=== PATIENT | female | born 1945 | race Hispanic/Latino ===

== ENCOUNTER 2023-09-30 23:23 | Emergency (ER) | payer OTHER ==
[~2023-09-30] VITALS: Ht 162.6 cm; Wt 72.6 kg
[2023-10-01 00:12] LABS: APPEARANCE,URINE CLEAR (CLEAR); BILIRUBIN,URINE NEGATIVE (NEGATIVE); COLOR,URINE LIGHT-YELLOW (YELLOW); GLUCOSE, URINE (UA) NEGATIVE (NEGATIVE); KETONES,URINE NEGATIVE (NEGATIVE); LEUKOCYTE ESTERASE ,URINE 250 Leu/uL (NEGATIVE); NITRATE,URINE 2+ (NEGATIVE); OCCULT BLOOD,URINE NEGATIVE (NEGATIVE); PH,URINE 5.5 (5.0-8.0); PROTEIN,URINE 20 mg/dL (NEGATIVE); UROBILINOGEN,URINE 0.2 mg/dL (0.2-1.0)
[2023-10-01 00:24] LABS: ADD UA MICROSCOPIC YES
[2023-10-01 00:29] LABS: BACTERIA,URINE Many /HPF (None Seen)
[2023-10-01 00:30] LABS: SQUAMOUS EPITHELIAL CELL,UR Rare /HPF (0-2)
[2023-10-01 00:37] LABS: RAPID GROUP A STREP negative (NEGATIVE)
[2023-10-01 00:47] LABS: COVID19 (SARS ANTIGEN RAPID) PRESUMPTIVE NEGATIVE (NEGATIVE); INFLUENZA TYPE A Negative For Type A (NEGATIVE); INFLUENZA TYPE B Negative For Type B (NEGATIVE)
[2023-10-01 01:27] LABS: BASOPHILS # (AUTO) 0.05 K/uL (0.00-0.20); BASOPHILS % (AUTO) 0.8 % (0.0-5.0); EOSINOPHILS # (AUTO) 0.26 K/uL (0.00-0.70); HEMATOCRIT 31.6 % (36-48); LYMPHOCYTES # (AUTO) 2.4 K/uL (1.0-4.8); LYMPHOCYTES % (AUTO) 37.1 % (21.0-51.0); MEAN CORPUSCULAR HEMOGLOBIN 31.7 pg (27.0-33.0); MEAN CORPUSCULAR HGB CONC 34.8 g/dL (32.0-36.0); MEAN CORPUSCULAR VOLUME 91.1 fL (79-99); MONOCYTES # (AUTO) 0.7 K/uL (0.1-1.0); NEUTROPHILS # (AUTO) 3.1 K/uL (1.8-7.7); NEUTROPHILS % (AUTO) 48.1 % (40.0-77.0); PLATELET COUNT (AUTO) 275 K/uL (130-400); RED BLOOD CELL COUNT(AUTO) 3.47 MIL/uL (4.00-5.50); WHITE BLOOD COUNT (AUTO) 6.5 K/uL (4.8-10.8)
[2023-10-01 01:34] LABS: CREATININE 1.8 mg/dL (0.5-1.5); POTASSIUM 4.3 mmol/L (3.5-5.1)
[2023-10-01] MEDS: CEPHALEXIN 500 MG CAPSULE PO ONE (01:43)
[2023-10-01] MEDS ORDERED: CEPH500T PO (02:14)
[2023-10-01 02:35] VITALS: BP 126/76; PULSE 74; RESP 18; O2SAT 99
== END 2023-10-01 02:36 | disposition home or self-care (01) ==
LOC: EDH 23:23
DX: N39.0 Urinary tract infection, site not specified (principal); E11.9 Type 2 diabetes mellitus without complications; I10 Essential (primary) hypertension; Z90.49 Acquired absence of other specified parts of digestive tract; Z20.822 Contact with and (suspected) exposure to COVID-19
CPT/HCPCS: 36415; 80048; 81001; 82550; 83605; 84484; 85025; 87077; 87088; 87186; 87420; 87426; 87804; 87880; 93005

== ENCOUNTER 2023-10-03 06:01 | Inpatient (IN) | payer OTHER ==
[~2023-10-03] VITALS: Ht 160 cm; Wt 72.6 kg
[~2023-10-03 06:01] MED LIST: CEPH500T PO
[2023-10-03 07:27] LABS: RAPID GROUP A STREP negative (NEGATIVE)
[2023-10-03 07:29] LABS: SARS-CoV-2, RNA, NAAT NEGATIVE SARS CoV-2 (NEGATIVE)
[2023-10-03 07:37] LABS: INFLUENZA TYPE A Negative For Type A (NEGATIVE); INFLUENZA TYPE B Negative For Type B (NEGATIVE)
[2023-10-03 07:52] LABS: APPEARANCE,URINE CLEAR (CLEAR); BILIRUBIN,URINE NEGATIVE (NEGATIVE); COLOR,URINE LIGHT-YELLOW (YELLOW); GLUCOSE, URINE (UA) 150 mg/dL (NEGATIVE); KETONES,URINE NEGATIVE (NEGATIVE); LEUKOCYTE ESTERASE ,URINE 250 Leu/uL (NEGATIVE); NITRATE,URINE NEGATIVE (NEGATIVE); OCCULT BLOOD,URINE NEGATIVE (NEGATIVE); PH,URINE 5.5 (5.0-8.0); PROTEIN,URINE 30 mg/dL (NEGATIVE); UROBILINOGEN,URINE 0.2 mg/dL (0.2-1.0)
[2023-10-03 07:58] LABS: ADD UA MICROSCOPIC YES
[2023-10-03 08:03] LABS: BASOPHILS # (AUTO) 0.07 K/uL (0.00-0.20); BASOPHILS % (AUTO) 0.9 % (0.0-5.0); EOSINOPHILS # (AUTO) 0.23 K/uL (0.00-0.70); HEMATOCRIT 30.9 % (36-48); IMMATURE GRANULOCYTE ABSOLUTE 0.01 K/uL (0-1); LYMPHOCYTES % (AUTO) 25.8 % (21.0-51.0); MEAN CORPUSCULAR HEMOGLOBIN 31.5 pg (27.0-33.0); MEAN CORPUSCULAR HGB CONC 34.6 g/dL (32.0-36.0); MEAN CORPUSCULAR VOLUME 90.9 fL (79-99); MONOCYTES # (AUTO) 0.6 K/uL (0.1-1.0); MONOCYTES % (AUTO) 7.7 % (3.0-13.0); NEUTROPHILS # (AUTO) 4.7 K/uL (1.8-7.7); NEUTROPHILS % (AUTO) 62.5 % (40.0-77.0); PLATELET COUNT (AUTO) 242 K/uL (130-400); RED CELL DISTRIBUTION WIDTH 13.6 % (11.0-15.5); WHITE BLOOD COUNT (AUTO) 7.6 K/uL (4.8-10.8)
[2023-10-03 08:09] LABS: BACTERIA,URINE FEW /HPF (None Seen); SQUAMOUS EPITHELIAL CELL,UR RARE /HPF (0-2); TRANSITIONAL EPI CELLS,URINE RARE /HPF (None Seen); WBC,URINE 26-50 /HPF (0-1)
[2023-10-03 08:18] LABS: ALBUMIN 3.4 g/dL (3.5-5.0); BILIRUBIN,TOTAL 0.3 mg/dL (0.2-1.0); CREATININE 1.4 mg/dL (0.5-1.5); TOTAL PROTEIN, SERUM 6.6 g/dL (6.0-8.3)
[2023-10-03] MEDS: LABETALOL 20MG VIAL IV ONE (08:29)
[2023-10-03] MEDS ORDERED: ACETAMINOPHEN 650 MG SUPPOSITORY RC PRN (09:00)
[2023-10-03] MEDS ORDERED: CLONIDINE HCL 0.1 MG TABLET PO PRN (09:00)
[2023-10-03] MEDS ORDERED: COMPOUND IV MISC 1 EACH IVSOLN MISC PRN (09:00)
[2023-10-03] MEDS ORDERED: ONDANSETRON 4MG INJ IVP PRN (09:00)
[2023-10-03] MEDS: LACTATED RINGERS 1000ML 1,000 ML IV SCH (09:32)
[2023-10-03] MEDS: AMLODIPINE 5 MG TAB PO SCH (09:39)
[2023-10-03] MEDS: ENOXAPARIN SODIUM 40 MG/0.4 ML SYRINGE SQ SCH (09:39)
[2023-10-03] MEDS: PANTOPRAZOLE 40 MG TAB DR PO SCH (09:39)
[2023-10-03] MEDS: MEROPENEM 1 GM in 0.9%NACL 100ML 100 ML IV SCH (09:48)
[2023-10-03 11:30] VITALS: O2SAT 98
[2023-10-03] MEDS: INSULIN HUMULIN R 100 UNIT/ML 3ML SQ SCH (11:30)
[2023-10-03] MEDS ORDERED: FOLI1 PO (15:10)
[2023-10-03] MEDS ORDERED: SITA1TBM7 PO (15:10)
[2023-10-03] MEDS ORDERED: ESCI-8 PO (15:10)
[2023-10-03] MEDS ORDERED: IBUP-2070 PO (15:10)
[2023-10-03] MEDS ORDERED: VERA240T95 PO (15:10)
[2023-10-03] MEDS ORDERED: ATOR40TA71 PO (15:10)
[2023-10-03] MEDS ORDERED: ERGO500093 PO (15:10)
[2023-10-03] MEDS ORDERED: MIRA50TA PO (15:10)
[2023-10-03] MEDS ORDERED: TRAZODONE HCL 50 MG TAB PO PRN (15:30)
[2023-10-03] MEDS: TRAZODONE HCL 50 MG TAB PO SCH (15:45)
[2023-10-03 16:00] VITALS: BP_SYST 106; BP_SYST 163; BP_DIAS 53; BP_DIAS 98; PULSE 74; PULSE 83; RESP 17; RESP 18
[2023-10-03] MEDS: HYDROXYZINE 25 MG TABLET PO SCH (16:33)
[2023-10-03 19:00] VITALS: BP 157/75; PULSE 70; RESP 20
[2023-10-03 20:00] VITALS: O2SAT 97
[2023-10-03] MEDS: NYSTATIN 15 GM POWDER TP SCH (20:28)
[2023-10-03] MEDS ORDERED: GLUCAGON 1MG KIT 1 MG ML IM PRN (22:30)
[2023-10-03] MEDS ORDERED: DEXTROSE 50%-WATER 50 ML DISP.SYRIN IV PRN (22:30)
[2023-10-03] MEDS ORDERED: POTASSIUM CHLORIDE 10% ELIXIR 20 MEQ/15 ML UDCUP PO PRN (22:30)
[2023-10-03] MEDS ORDERED: POTASSIUM CHLORIDE 20MEQ/100ML 100 ML IV PRN ×2 (22:30)
[2023-10-03] MEDS ORDERED: BISACODYL 10 MG SUPP.RECT RC PRN (23:00)
[2023-10-03 23:43] VITALS: BP 146/68; PULSE 68; RESP 20
[2023-10-04 04:00] VITALS: BP 156/89; PULSE 66; RESP 20
[2023-10-04 05:15] LABS: BASOPHILS # (AUTO) 0.06 K/uL (0.00-0.20); BASOPHILS % (AUTO) 0.9 % (0.0-5.0); EOSINOPHILS % (AUTO) 3.1 % (0.0-8.0); HEMATOCRIT 31.3 % (36-48); IMMATURE GRANULOCYTE ABSOLUTE 0.02 K/uL (0-1); LYMPHOCYTES # (AUTO) 2.4 K/uL (1.0-4.8); LYMPHOCYTES % (AUTO) 37.1 % (21.0-51.0); MEAN CORPUSCULAR HEMOGLOBIN 30.8 pg (27.0-33.0); MEAN CORPUSCULAR HGB CONC 33.9 g/dL (32.0-36.0); MONOCYTES # (AUTO) 0.6 K/uL (0.1-1.0); MONOCYTES % (AUTO) 9.5 % (3.0-13.0); NEUTROPHILS # (AUTO) 3.2 K/uL (1.8-7.7); NEUTROPHILS % (AUTO) 49.1 % (40.0-77.0); PLATELET COUNT (AUTO) 253 K/uL (130-400); RED BLOOD CELL COUNT(AUTO) 3.44 MIL/uL (4.00-5.50); RED CELL DISTRIBUTION WIDTH 13.7 % (11.0-15.5); WHITE BLOOD COUNT (AUTO) 6.5 K/uL (4.8-10.8)
[2023-10-04 05:26] LABS: INR <= 0.93 (0.85-1.15); PROTHROMBIN TIME 10.9 SEC (9.6-11.6)
[2023-10-04 05:33] LABS: CREATININE 1.1 mg/dL (0.5-1.5); MAGNESIUM 1.5 mg/dL (1.80-2.40); PHOSPHORUS 3.1 mg/dL (2.5-4.9); POTASSIUM 3.5 mmol/L (3.5-5.1)
[2023-10-04 08:00] VITALS: BP 173/75; PULSE 60; RESP 18; O2SAT 98
[2023-10-04] MEDS: VERAPAMIL HCL 240 MG SRTAB PO SCH (08:29)
[2023-10-04] MEDS: FOLIC ACID 1 MG TABLET PO SCH (08:29)
[2023-10-04] MEDS: CITALOPRAM 20 MG TABLET PO SCH (08:29)
[2023-10-04] MEDS: ATORVASTATIN 40 MG TABLET PO SCH (08:30)
[2023-10-04] MEDS: KCL 20 MEQ ERTAB PO PRN (08:31)
[2023-10-04] MEDS: POLYETHYLENE GLYCOL 3350 17 GM POWD.PACK PO SCH (08:31)
[2023-10-04] MEDS: MIRABEGRON 50 MG PO SCH (08:43)
[2023-10-04 12:00] VITALS: BP 143/76; PULSE 70; RESP 19
[2023-10-04 16:00] VITALS: BP 118/58; PULSE 72; RESP 17
[2023-10-04] MEDS: ACETAMINOPHEN 325 MG TAB PO PRN (16:05)
[2023-10-04 20:00] VITALS: BP 131/63; PULSE 70; RESP 16; O2SAT 98
[2023-10-04] MEDS: MAGNESIUM 2GM PREMIX 50ML 50 ML IV PRN (22:40)
[2023-10-05] VITALS (8 sets, daily range): BP systolic 86–164; BP diastolic 52–77; PULSE 62–69; RESP 16–20; O2SAT 97–98
[2023-10-05 05:31] LABS: BASOPHILS # (AUTO) 0.06 K/uL (0.00-0.20); EOSINOPHILS # (AUTO) 0.22 K/uL (0.00-0.70); EOSINOPHILS % (AUTO) 3.6 % (0.0-8.0); HEMATOCRIT 31.1 % (36-48); IMMATURE GRANULOCYTE ABSOLUTE 0.01 K/uL (0-1); LYMPHOCYTES # (AUTO) 2.3 K/uL (1.0-4.8); LYMPHOCYTES % (AUTO) 36.8 % (21.0-51.0); MEAN CORPUSCULAR HEMOGLOBIN 31.1 pg (27.0-33.0); MEAN CORPUSCULAR HGB CONC 32.8 g/dL (32.0-36.0); MEAN CORPUSCULAR VOLUME 94.8 fL (79-99); MONOCYTES # (AUTO) 0.5 K/uL (0.1-1.0); MONOCYTES % (AUTO) 7.8 % (3.0-13.0); NEUTROPHILS # (AUTO) 3.1 K/uL (1.8-7.7); NEUTROPHILS % (AUTO) 50.6 % (40.0-77.0); PLATELET COUNT (AUTO) 220 K/uL (130-400); RED BLOOD CELL COUNT(AUTO) 3.28 MIL/uL (4.00-5.50); RED CELL DISTRIBUTION WIDTH 13.8 % (11.0-15.5); WHITE BLOOD COUNT (AUTO) 6.1 K/uL (4.8-10.8)
[2023-10-05 05:53] LABS: CREATININE 1.1 mg/dL (0.5-1.5); MAGNESIUM 2.1 mg/dL (1.80-2.40)
[2023-10-06 04:00] VITALS: BP 139/61; PULSE 57; RESP 19
[2023-10-06 05:37] LABS: BASOPHILS # (AUTO) 0.05 K/uL (0.00-0.20); BASOPHILS % (AUTO) 0.9 % (0.0-5.0); EOSINOPHILS # (AUTO) 0.24 K/uL (0.00-0.70); EOSINOPHILS % (AUTO) 4.3 % (0.0-8.0); HEMATOCRIT 28.4 % (36-48); IMMATURE GRANULOCYTE ABSOLUTE 0.01 K/uL (0-1); LYMPHOCYTES % (AUTO) 36.6 % (21.0-51.0); MEAN CORPUSCULAR HEMOGLOBIN 31.3 pg (27.0-33.0); MEAN CORPUSCULAR HGB CONC 33.8 g/dL (32.0-36.0); MEAN CORPUSCULAR VOLUME 92.5 fL (79-99); MONOCYTES # (AUTO) 0.5 K/uL (0.1-1.0); MONOCYTES % (AUTO) 8.1 % (3.0-13.0); NEUTROPHILS # (AUTO) 2.8 K/uL (1.8-7.7); NEUTROPHILS % (AUTO) 49.9 % (40.0-77.0); PLATELET COUNT (AUTO) 214 K/uL (130-400); RED BLOOD CELL COUNT(AUTO) 3.07 MIL/uL (4.00-5.50); RED CELL DISTRIBUTION WIDTH 13.4 % (11.0-15.5); WHITE BLOOD COUNT (AUTO) 5.6 K/uL (4.8-10.8)
[2023-10-06 06:02] LABS: POTASSIUM 4.2 mmol/L (3.5-5.1)
[2023-10-06 08:00] VITALS: BP 143/73; PULSE 64; RESP 19
[2023-10-06 08:30] VITALS: O2SAT 96
[2023-10-06] MEDS: LACTULOSE 20 GM/30 ML UDCUP PO PRN (08:52)
[2023-10-06 12:00] VITALS: BP 120/61; PULSE 70; RESP 18
[2023-10-06] MEDS ORDERED: ONDANSETRON 4MG TABLET PO PRN (15:30)
[2023-10-06 16:00] VITALS: BP 112/52; PULSE 66; RESP 18
[2023-10-06 20:00] VITALS: BP 103/63; PULSE 72; RESP 17; O2SAT 98
[2023-10-07] VITALS: BP 142/73; PULSE 69; RESP 17
[2023-10-07 04:00] VITALS: BP 175/71; PULSE 67; RESP 17
[2023-10-07] MEDS: HYDRALAZINE 20MG/ML VIAL IV PRN (04:11)
[2023-10-07 06:00] LABS: BASOPHILS # (AUTO) 0.04 K/uL (0.00-0.20); BASOPHILS % (AUTO) 0.6 % (0.0-5.0); EOSINOPHILS # (AUTO) 0.23 K/uL (0.00-0.70); EOSINOPHILS % (AUTO) 3.4 % (0.0-8.0); IMMATURE GRANULOCYTE ABSOLUTE 0.01 K/uL (0-1); LYMPHOCYTES # (AUTO) 2.2 K/uL (1.0-4.8); LYMPHOCYTES % (AUTO) 33.3 % (21.0-51.0); MEAN CORPUSCULAR HEMOGLOBIN 31.1 pg (27.0-33.0); MEAN CORPUSCULAR HGB CONC 33.3 g/dL (32.0-36.0); MEAN CORPUSCULAR VOLUME 93.2 fL (79-99); MONOCYTES # (AUTO) 0.5 K/uL (0.1-1.0); MONOCYTES % (AUTO) 7.2 % (3.0-13.0); NEUTROPHILS # (AUTO) 3.7 K/uL (1.8-7.7); NEUTROPHILS % (AUTO) 55.4 % (40.0-77.0); PLATELET COUNT (AUTO) 239 K/uL (130-400); RED BLOOD CELL COUNT(AUTO) 3.54 MIL/uL (4.00-5.50); RED CELL DISTRIBUTION WIDTH 13.2 % (11.0-15.5); WHITE BLOOD COUNT (AUTO) 6.7 K/uL (4.8-10.8)
[2023-10-07 06:09] LABS: POTASSIUM 3.5 mmol/L (3.5-5.1)
[2023-10-07 08:00] VITALS: BP 164/74; PULSE 68; RESP 18; O2SAT 98
[2023-10-07 12:00] VITALS: BP 95/52; PULSE 76; RESP 18
[2023-10-07 16:00] VITALS: BP 109/49; PULSE 70; RESP 18
== END 2023-10-07 17:11 | disposition home or self-care (01) | DRG 872 ==
LOC: EDH 06:01 → OBSVTOIN 08:38 → EDHIP 08:38 → INTOOBSV 08:38 → 3CH 10:57
PROVIDERS: ADMIT Internal Medicine Pulmonary Disease; ATTEND Internal Medicine Pulmonary Disease
DX: A41.9 Sepsis, unspecified organism (principal); F03.94 Unspecified dementia, unspecified severity, with anxiety; Z16.24 Resistance to multiple antibiotics; N30.00 Acute cystitis without hematuria; Z16.12 Extended spectrum beta lactamase (ESBL) resistance; Z20.822 Contact with and (suspected) exposure to COVID-19; M19.09 Primary osteoarthritis, other specified site; B96.1 Klebsiella pneumoniae [K. pneumoniae] as the cause of diseases classified elsewhere; E11.65 Type 2 diabetes mellitus with hyperglycemia; D64.9 Anemia, unspecified; E78.5 Hyperlipidemia, unspecified; F32.A Depression, unspecified; I10 Essential (primary) hypertension; N19 Unspecified kidney failure; Z83.3 Family history of diabetes mellitus; Z90.49 Acquired absence of other specified parts of digestive tract; Z79.899 Other long term (current) drug therapy
CPT/HCPCS: 36415; 74176; 80048; 80053; 81001; 82948; 83605; 83735; 84100; 84145; 85025; 85610; 87040; 87635; 87804; 87880; 93005; C1894; G0378; J0360; J1650; J1815; J2185; J3475; J3490; C1750

== ENCOUNTER → 2024-01-08 | Outpatient (CLI) | payer OTHER ==
[~2024-01-08] MED LIST changes: +ATOR40TA71 PO; +BUSP5TAB3 PO; -CEPH500T PO; +ERGO500093 PO; +ESCI-8 PO; +FAMO20TA8 PO; +FOLI1 PO; +HYDR-3421 PO; +IBUP-2070 PO; +LACT10SO75 PO; +MIRA50TA PO; +ONDA-104 PO; +SERT25TA PO; +SITA1TBM7 PO; +VERA240T95 PO
[2024-01-08] MEDS: REGADENOSON 0.4 MG/5 ML PF SYG IVP SCH (14:05)
== END | disposition home or self-care (01) ==
LOC: RAH 11:30
PROVIDERS: ATTEND Internal Medicine
DX: R94.31 Abnormal electrocardiogram [ECG] [EKG] (principal)
CPT/HCPCS: 78452; 96374; 93017; J2785; A9500 ×2

== ENCOUNTER 2024-01-14 17:56 | Emergency (ER) | payer OTHER ==
[~2024-01-14] VITALS: Ht 160 cm; Wt 64.9 kg
[2024-01-14] MEDS: 0.9%NACL 1000ML 1,000 ML IV ONE (18:30)
[2024-01-14] MEDS: ONDANSETRON 4MG INJ IVP ONE (18:31)
[2024-01-14 18:56] LABS: BASOPHILS # (AUTO) 0.05 K/uL (0.00-0.20); BASOPHILS % (AUTO) 0.6 % (0.0-5.0); EOSINOPHILS # (AUTO) 0.12 K/uL (0.00-0.70); EOSINOPHILS % (AUTO) 1.4 % (0.0-8.0); HEMATOCRIT 27.9 % (36-48); IMMATURE GRANULOCYTE ABSOLUTE 0.02 K/uL (0-1); LYMPHOCYTES # (AUTO) 1.9 K/uL (1.0-4.8); LYMPHOCYTES % (AUTO) 22.7 % (21.0-51.0); MEAN CORPUSCULAR HEMOGLOBIN 31.6 pg (27.0-33.0); MEAN CORPUSCULAR HGB CONC 34.8 g/dL (32.0-36.0); MEAN CORPUSCULAR VOLUME 90.9 fL (79-99); MONOCYTES # (AUTO) 0.6 K/uL (0.1-1.0); MONOCYTES % (AUTO) 7.1 % (3.0-13.0); NEUTROPHILS # (AUTO) 5.7 K/uL (1.8-7.7); PLATELET COUNT (AUTO) 275 K/uL (130-400); RED BLOOD CELL COUNT(AUTO) 3.07 MIL/uL (4.00-5.50); RED CELL DISTRIBUTION WIDTH 14.2 % (11.0-15.5); WHITE BLOOD COUNT (AUTO) 8.3 K/uL (4.8-10.8)
[2024-01-14 19:03] LABS: APPEARANCE,URINE CLEAR (CLEAR); BILIRUBIN,URINE NEGATIVE (NEGATIVE); COLOR,URINE LIGHT-YELLOW (YELLOW); GLUCOSE, URINE (UA) NEGATIVE (NEGATIVE); KETONES,URINE NEGATIVE (NEGATIVE); LEUKOCYTE ESTERASE ,URINE 75 Leu/uL (NEGATIVE); NITRATE,URINE NEGATIVE (NEGATIVE); OCCULT BLOOD,URINE NEGATIVE (NEGATIVE); PH,URINE 5.5 (5.0-8.0); PROTEIN,URINE 10 mg/dL (NEGATIVE); UROBILINOGEN,URINE 0.2 mg/dL (0.2-1.0)
[2024-01-14 19:05] LABS: ADD UA MICROSCOPIC YES
[2024-01-14 19:07] LABS: BACTERIA,URINE RARE /HPF (None Seen); RBC,URINE 0-1 /HPF (0-1); SQUAMOUS EPITHELIAL CELL,UR RARE /HPF (0-2)
[2024-01-14 19:15] LABS: CREATININE 1.3 mg/dL (0.5-1.0); POTASSIUM 3.9 mmol/L (3.5-5.1)
[2024-01-14 19:22] LABS: ALBUMIN 3.3 g/dL (3.5-5.0); BILIRUBIN,TOTAL 0.3 mg/dL (0.2-1.0); TOTAL PROTEIN, SERUM 6.2 g/dL (6.0-8.3)
[2024-01-14] MEDS ORDERED: CYAN-106 PO (19:36)
[2024-01-14] MEDS ORDERED: TRAM-355 PO (19:36)
[2024-01-14] MEDS ORDERED: SITA1TBM7 PO (19:36)
[2024-01-14] MEDS ORDERED: ALEN70TA80 PO (19:36)
[2024-01-14] MEDS ORDERED: CEPH500B PO (20:01)
[2024-01-14] MEDS: ACETAMINOPHEN 325 MG TAB PO ONE (20:05)
[2024-01-14 20:18] VITALS: BP 144/61; PULSE 80; RESP 19; O2SAT 98
[2024-01-16] MEDS ORDERED: AMOX1TAB15 PO (17:27)
[2024-01-18] MEDS ORDERED: PANT40TA54 PO (21:04)
[2024-01-18] MEDS ORDERED: TRAM-355 PO (22:10)
[2024-01-18] MEDS ORDERED: ATOR40TA69 PO (22:10)
[2024-01-18] MEDS ORDERED: MECO10005 PO (22:10)
== END 2024-01-14 20:19 | disposition home or self-care (01) ==
LOC: EDH 17:56
DX: N39.0 Urinary tract infection, site not specified (principal); R11.0 Nausea; F41.9 Anxiety disorder, unspecified; E11.9 Type 2 diabetes mellitus without complications; E78.00 Pure hypercholesterolemia, unspecified; I10 Essential (primary) hypertension; Z79.2 Long term (current) use of antibiotics; Z79.899 Other long term (current) drug therapy; Z79.84 Long term (current) use of oral hypoglycemic drugs; Z90.49 Acquired absence of other specified parts of digestive tract
CPT/HCPCS: 99285; 96374; 71045; 96361; 82550; 84484; 80053; 83690; 85025; 87086; 81001; 36415; 93005; J7030; J2405

== ENCOUNTER 2024-01-24 20:34 | Emergency (ER) | payer OTHER ==
[~2024-01-24] VITALS: Ht 160 cm; Wt 64.9 kg
[~2024-01-24 20:34] MED LIST changes: +ALEN70TA80 PO; +ATOR40TA69 PO; -ATOR40TA71 PO; -BUSP5TAB3 PO; +CYAN-106 PO; -ERGO500093 PO; -FAMO20TA8 PO; -FOLI1 PO; -HYDR-3421 PO; -IBUP-2070 PO; -LACT10SO75 PO; +LEVO250T75 PO; +MECO10005 PO; -MIRA50TA PO; -ONDA-104 PO; +PANT40TA54 PO; -SERT25TA PO; +TRAM-530 PO
[2024-01-24] MEDS: TRAMADOL HCL 50 MG TABLET PO ONE (20:58)
[2024-01-24] MEDS: DiphenhydrAMINE HCL 50 MG/ML VIAL IM ONE (23:53)
[2024-01-25 01:37] LABS: ADD UA MICROSCOPIC YES; APPEARANCE,URINE CLEAR (CLEAR); BILIRUBIN,URINE NEGATIVE (NEGATIVE); COLOR,URINE LIGHT-YELLOW (YELLOW); GLUCOSE, URINE (UA) 50 mg/dL (NEGATIVE); KETONES,URINE 5 mg/dL (NEGATIVE); LEUKOCYTE ESTERASE ,URINE 25 Leu/uL (NEGATIVE); NITRATE,URINE NEGATIVE (NEGATIVE); OCCULT BLOOD,URINE NEGATIVE (NEGATIVE); PH,URINE 7.5 (5.0-8.0); PROTEIN,URINE NEGATIVE (NEGATIVE); UROBILINOGEN,URINE 0.2 mg/dL (0.2-1.0)
[2024-01-25 01:39] LABS: BASOPHILS # (AUTO) 0.05 K/uL (0.00-0.20); BASOPHILS % (AUTO) 0.5 % (0.0-5.0); EOSINOPHILS # (AUTO) 0.18 K/uL (0.00-0.70); EOSINOPHILS % (AUTO) 1.7 % (0.0-8.0); HEMATOCRIT 27.7 % (36-48); IMMATURE GRANULOCYTE ABSOLUTE 0.03 K/uL (0-1); LYMPHOCYTES # (AUTO) 2.1 K/uL (1.0-4.8); LYMPHOCYTES % (AUTO) 19.1 % (21.0-51.0); MEAN CORPUSCULAR HEMOGLOBIN 30.9 pg (27.0-33.0); MEAN CORPUSCULAR HGB CONC 33.6 g/dL (32.0-36.0); MONOCYTES % (AUTO) 9.3 % (3.0-13.0); NEUTROPHILS # (AUTO) 7.5 K/uL (1.8-7.7); NEUTROPHILS % (AUTO) 69.1 % (40.0-77.0); PLATELET COUNT (AUTO) 340 K/uL (130-400); RED BLOOD CELL COUNT(AUTO) 3.01 MIL/uL (4.00-5.50); RED CELL DISTRIBUTION WIDTH 13.6 % (11.0-15.5); WHITE BLOOD COUNT (AUTO) 10.8 K/uL (4.8-10.8)
[2024-01-25 01:40] LABS: BACTERIA,URINE RARE /HPF (None Seen); RBC,URINE 0-1 /HPF (0-1)
[2024-01-25 01:44] LABS: AMPHET/METH SCREEN,URINE NEGATIVE (NEGATIVE); BARBITURATE SCREEN, URINE NEGATIVE (NEGATIVE); BENZODIAZEPINES SCREEN,URINE NEGATIVE (NEGATIVE); CANNABINOID SCREEN,URINE NEGATIVE (NEGATIVE); COCAINE SCREEN,URINE NEGATIVE (NEGATIVE); OPIATE SCREEN,URINE NEGATIVE (NEGATIVE); PHENCYCLIDINE SCREEN,URINE NEGATIVE (NEGATIVE)
[2024-01-25 01:44] LABS: CARBON DIOXIDE 26 mmol/L (21-32); CHLORIDE 103 mmol/L (101-111); CREATININE 0.8 mg/dL (0.5-1.0); GLOMERULAR FILTR. RATE CALC 74 mL/min (>90); GLUCOSE,RANDOM 117 mg/dL (70-105); POTASSIUM 3.7 mmol/L (3.5-5.1); SODIUM SERUM 139 mmol/L (136-145); UREA NITROGEN, BLOOD 11 mg/dL (7-18)
[2024-01-25 01:48] LABS: ALANINE AMINOTRANSFERASE 12 U/L (12-78); ASPARTATE AMINOTRANSFERASE 14 U/L (10-37); BILIRUBIN,TOTAL 0.9 mg/dL (0.2-1.0); CREATINE KINASE, TOTAL 54 U/L (21-232); TOTAL PROTEIN, SERUM 6.5 g/dL (6.0-8.3)
[2024-01-25 02:01] LABS: AMMONIA < 10 umol/L (11-32)
[2024-01-25] MEDS: HALOPERIDOL INJ 5 MG/ML VIAL IV ONE (02:18)
[2024-01-25] MEDS ORDERED: GABA-534 PO (06:15)
[2024-01-25] MEDS: KETOROLAC 30MG VIAL (30MG/ML) IM ONE (06:58)
[2024-01-25 08:21] VITALS: BP 159/71; PULSE 86; RESP 17; O2SAT 99
== END 2024-01-25 08:24 | disposition home or self-care (01) ==
LOC: EDH 20:34
DX: M25.511 Pain in right shoulder (principal); M48.54XA Collapsed vertebra, not elsewhere classified, thoracic region, initial encounter for fracture; E11.9 Type 2 diabetes mellitus without complications; E78.00 Pure hypercholesterolemia, unspecified; I10 Essential (primary) hypertension; Z79.899 Other long term (current) drug therapy; Z90.49 Acquired absence of other specified parts of digestive tract; Z96.611 Presence of right artificial shoulder joint
CPT/HCPCS: 99285; 72148; 82550; 84484; 80053; 80305; 82140; 83690; 85025; 36415; 72100; 73030; 96372 ×2; 81001; 96374; J1200; J1630; J1885

== ENCOUNTER 2024-02-29 10:18 | Emergency (ER) | payer OTHER ==
[~2024-02-29] VITALS: Ht 160 cm; Wt 64.9 kg
[~2024-02-29 10:18] MED LIST changes: +GABA-534 PO; -LEVO250T75 PO; -TRAM-530 PO; +TRAM-543 PO
[2024-02-29 11:22] LABS: HEMATOCRIT 30.6 % (36-48); MEAN CORPUSCULAR HEMOGLOBIN 31.3 pg (27.0-33.0); MEAN CORPUSCULAR HGB CONC 34.3 g/dL (32.0-36.0); MEAN CORPUSCULAR VOLUME 91.1 fL (79-99); PLATELET COUNT (AUTO) 362 K/uL (130-400); RED BLOOD CELL COUNT(AUTO) 3.36 MIL/uL (4.00-5.50); RED CELL DISTRIBUTION WIDTH 14.7 % (11.0-15.5); WHITE BLOOD COUNT (AUTO) 8.6 K/uL (4.8-10.8)
[2024-02-29] MEDS: 0.9%NACL 1000ML 1,000 ML IV ONE (11:23)
[2024-02-29 11:29] LABS: CREATININE 0.8 mg/dL (0.5-1.0); POTASSIUM 3.4 mmol/L (3.5-5.1)
[2024-02-29 11:48] LABS: ALBUMIN 2.8 g/dL (3.5-5.0); BILIRUBIN,DIRECT 0.1 mg/dL (0.0-0.3); BILIRUBIN,TOTAL 0.5 mg/dL (0.2-1.0); MAGNESIUM 1.7 mg/dL (1.80-2.40); TOTAL PROTEIN, SERUM 5.9 g/dL (6.0-8.3)
[2024-02-29 11:57] LABS: BAND NEUTROPHILS % (MANUAL) 1 % (0-2); LYMPHOCYTES % (MANUAL) 22 % (22-44); MAN.DIFF COMMENT-IMPRESSION MANUAL DIFFERENTIAL; MONOCYTES % (MANUAL) 9 % (2-9); PLATELET MORPHOLOGY COMMENT ADEQUATE; SEGMENTED NEUTROPHILS % 68 % (40-70); TOTAL CELLS COUNTED 100
[2024-02-29 15:21] LABS: APPEARANCE,URINE TURBID (CLEAR); BILIRUBIN,URINE NEGATIVE (NEGATIVE); COLOR,URINE LIGHT-ORANGE (YELLOW); GLUCOSE, URINE (UA) NEGATIVE (NEGATIVE); KETONES,URINE 10 mg/dL (NEGATIVE); LEUKOCYTE ESTERASE ,URINE 500 Leu/uL (NEGATIVE); NITRATE,URINE NEGATIVE (NEGATIVE); OCCULT BLOOD,URINE MODERATE (NEGATIVE); PROTEIN,URINE 70 mg/dL (NEGATIVE); UROBILINOGEN,URINE 0.2 mg/dL (0.2-1.0)
[2024-02-29 15:24] LABS: ADD UA MICROSCOPIC YES
[2024-02-29 15:27] LABS: BACTERIA,URINE RARE /HPF (None Seen); NON-SQUAMOUS EPITHELIAL CELL 19 /HPF (0-2); OTHER CASTS, URINE 21 /LPF (None Seen); SQUAMOUS EPITHELIAL CELL,UR FEW /HPF (0-2); WBC CLUMP FEW /HPF (0-1); WBC,URINE >100 /HPF (0-1); YEAST,URINE BUDDING FEW /HPF (None Seen); YEAST,URINE HYPHAE FEW /HPF (None Seen)
[2024-02-29] MEDS: CEFTRIAXONE 2GM VIAL IVPB ONE (16:45)
[2024-02-29] MEDS ORDERED: MACR100 PO (16:51)
[2024-02-29 19:12] VITALS: BP 110/52; PULSE 64; RESP 16; O2SAT 99
== END 2024-02-29 19:42 | disposition home or self-care (01) ==
LOC: EDH 10:18
DX: S40.021A Contusion of right upper arm, initial encounter (principal); N39.0 Urinary tract infection, site not specified; E86.0 Dehydration; R41.0 Disorientation, unspecified; K13.79 Other lesions of oral mucosa; F41.9 Anxiety disorder, unspecified; E11.9 Type 2 diabetes mellitus without complications; K21.9 Gastro-esophageal reflux disease without esophagitis; E78.00 Pure hypercholesterolemia, unspecified; I10 Essential (primary) hypertension; M81.0 Age-related osteoporosis without current pathological fracture; Z96.659 Presence of unspecified artificial knee joint; W23.0XXA Caught, crushed, jammed, or pinched between moving objects, initial encounter; Y93.89 Activity, other specified; Y92.238 Other place in hospital as the place of occurrence of the external cause; Y99.8 Other external cause status
CPT/HCPCS: 99285; 96375; 96374; 71045; 82270; 80076; 83735; 80048; 83880; 85025; 87086; 81001; 36415; 73080; 73090; 73060; 93005; J7030; J0696

== ENCOUNTER 2024-07-15 13:43 | Inpatient (IN) | payer OTHER ==
[~2024-07-15] VITALS: Ht 157.5 cm; Wt 50.8 kg
[~2024-07-15 13:43] MED LIST changes: +MACR100 PO
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
--- NOTE | 2024-07-15 15:27 | HMCIMG ---
Exam Type: WRIST 2VWS LT, HAND 3+VWS LT Clinical Information: FALL W/INJURY Comparison: None Findings: There is osteopenia. The examination is otherwise unremarkable. No fractures or dislocations are seen. No radiopaque foreign bodies are noted. Soft tissues are preserved. IMPRESSION: Osteopenia. No acute pathology.
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
--- NOTE | 2024-07-15 16:22 | NUR ---
PT ASKED OUTRIGHT IF SHE WANTED TO OR HAS BEEN TRYING TO COMMIT SUICIDE AND PT DENIES SUICIDE ATTEMPT
[2024-07-15] MEDS: DiphenhydrAMINE HCL 50 MG/ML VIAL ONE (16:26)
[2024-07-15] MEDS: INSULIN LISpro 100 UNIT/ML 3ML SQ SCH (16:30)
[2024-07-15] MEDS ORDERED: guaiFENesin-DM 200/20MG 10ML PO PRN (16:30)
[2024-07-15] MEDS ORDERED: ondanSETRON 4MG INJ IV PRN (16:30)
[2024-07-15] MEDS ORDERED: guaiFENesin SUGAR-FREE 100 MG/5 ML UDCUP PO PRN (16:30)
[2024-07-15] MEDS ORDERED: MAG/ALUM/SIMETH 30 ML UDCUP PO PRN (16:30)
[2024-07-15] MEDS ORDERED: LACTULOSE 20 GM/30 ML UDCUP PO PRN (16:30)
[2024-07-15] MEDS: DiphenhydrAMINE HCL 50 MG/ML VIAL IM ONE (16:30)
[2024-07-15] MEDS ORDERED: NITROGLYCERIN 0.4 MG SL TAB SL PRN (16:30)
[2024-07-15] MEDS ORDERED: LIDOCAINE HCL 2% VISCOUS 30 ML, MAG/ALUM/SIMETH 30ML 30 ML, DICYCLOMINE HCL 20 MG PO PRN (16:30)
[2024-07-15] MEDS ORDERED: ARTIFICAL TEARS SOL 15 ML OP PRN (16:30)
[2024-07-15] MEDS ORDERED: BENZOCAINE/MENTH/CETYLPYRD CL 1 EACH LOZENGE MM PRN (16:30)
[2024-07-15] MEDS ORDERED: acetaMINOPHEN 325 MG TAB PO PRN (16:30)
[2024-07-15 16:52] LABS: BASOPHILS # (AUTO) 0.07 K/uL (0.00-0.20); BASOPHILS % (AUTO) 0.6 % (0.0-5.0); EOSINOPHILS # (AUTO) 0.24 K/uL (0.00-0.70); EOSINOPHILS % (AUTO) 2.1 % (0.0-8.0); HEMATOCRIT 27.6 % (36-48); IMMATURE GRANULOCYTE ABSOLUTE 0.03 K/uL (0-1); LYMPHOCYTES # (AUTO) 2.1 K/uL (1.0-4.8); LYMPHOCYTES % (AUTO) 18.2 % (21.0-51.0); MEAN CORPUSCULAR HEMOGLOBIN 31.5 pg (27.0-33.0); MEAN CORPUSCULAR HGB CONC 34.4 g/dL (32.0-36.0); MEAN CORPUSCULAR VOLUME 91.4 fL (79-99); MONOCYTES # (AUTO) 0.6 K/uL (0.1-1.0); MONOCYTES % (AUTO) 5.3 % (3.0-13.0); NEUTROPHILS # (AUTO) 8.4 K/uL (1.8-7.7); NEUTROPHILS % (AUTO) 73.5 % (40.0-77.0); PLATELET COUNT (AUTO) 384 K/uL (130-400); RED BLOOD CELL COUNT(AUTO) 3.02 MIL/uL (4.00-5.50); RED CELL DISTRIBUTION WIDTH 14.3 % (11.0-15.5); WHITE BLOOD COUNT (AUTO) 11.5 K/uL (4.8-10.8)
[2024-07-15 17:04] LABS: POTASSIUM 3.1 mmol/L (3.5-5.1)
--- NOTE | 2024-07-15 17:30 | NUR ---
MEDICATION RECONCILIATION: NO MEDS W/PT.
[2024-07-15] MEDS: LORazepam 2 MG/ML 1 ML VIAL IVP ONE (18:17)
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
--- NOTE | 2024-07-15 19:14 | NUR ---
REPORT ENDORSED TO YOUNG PATEL
[2024-07-15] MEDS: FAMOTIDINE 20MG TAB PO SCH (21:00)
[2024-07-15] MEDS: FAMOTIDINE 20MG VIAL IV SCH (21:12)
--- NOTE | 2024-07-15 21:14 | NUR ---
UNABLE TO RECONCILE MEDS: NOT AVAILABLE AT BEDSIDE
--- NOTE | 2024-07-15 22:02 | NUR ---
UNABLE TO ASSESS AMBULATION PT IS CONFUSED/ NON COMPLIANT IN AND OUT CATH FOR URINE SAMPLE DONE AND SENT TO LAB INCONTINENCE WITH URINATION, NIL PRESSURE SORE NOTED. MOISTURE LEISON/REDNESS LABIAL AREL VS DIAPER RASH?
[2024-07-15 22:07] LABS: APPEARANCE,URINE CLEAR (CLEAR); BILIRUBIN,URINE NEGATIVE (NEGATIVE); COLOR,URINE YELLOW (YELLOW); GLUCOSE, URINE (UA) NEGATIVE (NEGATIVE); KETONES,URINE NEGATIVE (NEGATIVE); LEUKOCYTE ESTERASE ,URINE 250 Leu/uL (NEGATIVE); NITRATE,URINE NEGATIVE (NEGATIVE); OCCULT BLOOD,URINE NEGATIVE (NEGATIVE); PH,URINE 5.5 (5.0-8.0); PROTEIN,URINE 50 mg/dL (NEGATIVE); UROBILINOGEN,URINE 0.2 mg/dL (0.2-1.0)
[2024-07-15 22:09] LABS: MUCUS,URINE RARE LPF (None Seen); RBC,URINE 0-1 /HPF (0-1); SQUAMOUS EPITHELIAL CELL,UR RARE /HPF (0-2); WBC,URINE 51-100 /HPF (0-1)
[2024-07-15 22:25] VITALS: BP 141/64; PULSE 73; RESP 16; TEMP 98.4
--- NOTE | 2024-07-15 22:25 | NUR ---
ADMIT NOTE ADMIT TO ROOM 410 VIA STRETCHER FROM ER, NO FAMILY AT BEDSIDE, NO MEDICATIONS BROUGHT TO THE HOSPITAL, PATIENT OX2, FORGETFUL AT TIMES
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
[2024-07-15] MEDS: PoTASSium chl 10% ELIXIR 20MEQ 20 MEQ/15 ML UDCUP PO PRN (23:59)
[2024-07-16] VITALS: BP 141/64; PULSE 75; RESP 18; TEMP 98.4
[2024-07-16] MEDS ORDERED: DEXTROSE 50%-WATER 50 ML DISP.SYRIN IV PRN
[2024-07-16] MEDS ORDERED: PoTASSium chloRIDE 10MEQ/100ML 100 ML IV PRN
[2024-07-16] MEDS ORDERED: GLUCAGON 1MG KIT 1 MG ML IM PRN
[2024-07-16] MEDS ORDERED: PoTASSium chloRIDE 20MEQ ER 20 MEQ ERTAB PO PRN
[2024-07-16] MEDS ORDERED: VANCOMYCIN PROTOCOL PER PHARMACY IV SCH
[2024-07-16] MEDS: ceFEPime HCL 1 GM VIAL IVPB SCH (00:16)
[2024-07-16] MEDS: acetaMINOPHEN 325 MG TAB PO PRN (00:21)
[2024-07-16] MEDS: VANCOMYCIN 1.25 GM/250 ML BAG 250 ML IV ONE (00:24)
[2024-07-16 04:00] VITALS: BP 126/50; PULSE 70; RESP 16; TEMP 98
[2024-07-16 04:55] LABS: BASOPHILS # (AUTO) 0.08 K/uL (0.00-0.20); BASOPHILS % (AUTO) 0.7 % (0.0-5.0); EOSINOPHILS # (AUTO) 0.46 K/uL (0.00-0.70); EOSINOPHILS % (AUTO) 4.2 % (0.0-8.0); HEMATOCRIT 26.9 % (36-48); IMMATURE GRANULOCYTE ABSOLUTE 0.03 K/uL (0-1); LYMPHOCYTES # (AUTO) 1.9 K/uL (1.0-4.8); LYMPHOCYTES % (AUTO) 17.1 % (21.0-51.0); MEAN CORPUSCULAR HEMOGLOBIN 31.2 pg (27.0-33.0); MEAN CORPUSCULAR HGB CONC 33.8 g/dL (32.0-36.0); MEAN CORPUSCULAR VOLUME 92.1 fL (79-99); MONOCYTES # (AUTO) 0.7 K/uL (0.1-1.0); MONOCYTES % (AUTO) 5.9 % (3.0-13.0); NEUTROPHILS # (AUTO) 7.9 K/uL (1.8-7.7); NEUTROPHILS % (AUTO) 71.8 % (40.0-77.0); PLATELET COUNT (AUTO) 378 K/uL (130-400); RED BLOOD CELL COUNT(AUTO) 2.92 MIL/uL (4.00-5.50); RED CELL DISTRIBUTION WIDTH 14.2 % (11.0-15.5)
[2024-07-16 05:01] LABS: RAPID GROUP A STREP negative (NEGATIVE)
[2024-07-16 05:03] LABS: SARS-CoV-2, RNA, NAAT NEGATIVE SARS CoV-2 (NEGATIVE)
[2024-07-16 05:11] LABS: INFLUENZA TYPE A Negative For Type A (NEGATIVE); INFLUENZA TYPE B Negative For Type B (NEGATIVE)
[2024-07-16 05:46] LABS: ALBUMIN 2.2 g/dL (3.5-5.0); BILIRUBIN,TOTAL 0.5 mg/dL (0.2-1.0); CREATININE 0.8 mg/dL (0.5-1.0); MAGNESIUM 1.4 mg/dL (1.80-2.40); POTASSIUM 3.9 mmol/L (3.5-5.1); THYROID STIMULATING HORMONE 2.4 uIU/mL (0.36-3.74); TOTAL PROTEIN, SERUM 5.5 g/dL (6.0-8.3)
[2024-07-16] MEDS ORDERED: PoTASSium chloRIDE 10MEQ SR 10 MEQ/TAB TAB.SR.24H PO PRN (07:30)
[2024-07-16 08:00] VITALS: BP 147/66; PULSE 70; RESP 13; TEMP 98
[2024-07-16] MEDS: doCUSate SODIUM 100 MG CAP PO PRN (08:28)
--- NOTE | 2024-07-16 08:29 | HMCIMG ---
Exam Type: US VENOUS DOPPLER UNILATERAL Clinical Information: HIGH DIMER 5852 Comparison: None Findings: The examination shows nonocclusive thrombosis of the cephalic vein as well as the axillary vein. The rest of the venous structures evaluated shows no evidence of thrombosis. IMPRESSION: Thrombus as noted.
[2024-07-16] MEDS: MAGNESIUM 2GM PREMIX 50ML 50 ML IV PRN (08:30)
--- NOTE | 2024-07-16 08:43 | HMCIMG ---
Exam Type: US VENOUS DOPPLER BILATERAL Clinical Information: HIGH DIMER 5852 Comparison: None Findings: The examination shows normal deep venous system. There is normal compressibility at all levels. There is no intraluminal clot. There is no occlusion. Adequate response is obtained on augmentation. Impression: No evidence of DVT.
--- NOTE | 2024-07-16 11:11 | NUR ---
[facility] Consult: Patient assessed by wound healing team. See wound assessment. Assessment and recommendations provided to primary nurse. Education provided. Addendum: 07/16/24 at 1253 by ESDRAS LÓPEZ RN RN/ Amended: Links added.
[2024-07-16] MEDS ORDERED: GABAPENTIN 300 MG CAPSULE PO PRN (11:30)
[2024-07-16] MEDS ORDERED: NON-FORMULARY MEDICATION 1 EACH (Gabapentin 400 MG) PO PRN (11:30)
[2024-07-16] MEDS: VANCOMYCIN 500MG+NS 100ML 100 ML IV SCH (11:50)
[2024-07-16 12:00] VITALS: BP 142/62; PULSE 83; RESP 15; TEMP 98.1
[2024-07-16] MEDS: DiphenhydrAMINE HCL 25 MG CAPSULE PO PRN (12:53)
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
--- NOTE | 2024-07-16 13:59 | HMCIMG ---
Carotid Duplex and color-flow Doppler bilateral History: frequent falls Comparison: None Findings: No significant plaque is identified on either side. Left Internal Carotid Artery Peak Systolic Velocity (PSV), Left Internal Carotid to Common Carotid Artery peak systolic velocity ratio, Right Internal Carotid Artery Peak Systolic Velocity (PSV) and Right Internal Carotid to Common Carotid Artery peak systolic velocity ratio, are all within normal limits. External carotid artery velocities normal bilaterally. Bilateral vertebral arteries show antegrade flow. Impression: Normal exam. NASCET CRITERIA. The degree of internal carotid artery stenosis is based on NASCET criteria. Normal is no stenosis. Mild is less than 50% stenosis. Moderate is 50-69% stenosis. Severe is 70% to 99% stenosis. Total occlusion is no detectable patent lumen.
[2024-07-16] MEDS: BALSAM PERU/CASTOR OIL 60 GM TUBE TP SCH (14:10)
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
[2024-07-16] MEDS: LORazepam 2 MG/ML 1 ML VIAL IM PRN (14:46)
--- NOTE | 2024-07-16 15:37 | NUR ---
unable to eval for PT this date. Pt is screaming and attempting to climb bed rails and remove lines. Pt not able to calm down at this moment. PT to follow
[2024-07-16 16:00] VITALS: BP 185/75; PULSE 70; RESP 16; TEMP 98.1
--- NOTE | 2024-07-16 17:40 | NUR ---
[facility] ON HOLD ATT, PT UNCOOPERATIVE, RN ANDRÉS WORKING ON PHONE CONSENT, [facility] IV WILL CALL
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
--- NOTE | 2024-07-16 19:52 | NUR ---
SPOKE TO NURSE, PT SEEMS CALM, CONSENT AND IV READY, NURSE WILL CHECK IF PT ABLE TO COME DOWN AND POSSIBLY MAKE ARRANGEMENTS TO HAVE PT TRANSPORTED TO RAD DEPT FOR CT EXAM. NURSE WILL CALL [phone] TO UPDATE
[2024-07-16 20:00] VITALS: BP 133/71; PULSE 75; RESP 19; TEMP 98.3
[2024-07-16] MEDS ORDERED: IOHEXOL 350 MG/ML 100ML INFUS..BTL IV ONE (20:25)
--- NOTE | 2024-07-16 20:45 | NUR ---
PT WAS BROUGHT DOWN FOR CT EXAM. IV SITE WAS NO GOOD, INFORMED RN THAT ANOTHER IV SITE IS REQUIRED FOR THIS CT EXAM. RN STATED IT WILL BE A WHILE, RN WILL CALL WHEN PT READY WITH KNEW IV SITE. PT WAS TAKEN BACK TO HER RM
[2024-07-16] MEDS ORDERED: BALSAM PERU/CASTOR OIL 60 GM TUBE TP SCH (21:00)
[2024-07-16] MEDS: atorVAStatin 40 MG TABLET PO SCH (21:05)
[2024-07-17] VITALS: BP 155/67; PULSE 87; RESP 18; TEMP 98.2
[2024-07-17 04:00] VITALS: BP 172/82; PULSE 81; RESP 20; TEMP 97.6
[2024-07-17] MEDS: ZIPRASIDONE MESYLATE 20 MG/VIAL IM PRN (04:42)
[2024-07-17] MEDS: ceFEPime HCL 1 GM VIAL IVPB SCH (04:45)
[2024-07-17] MEDS ORDERED: IOHEXOL 350 MG/ML 100ML INFUS..BTL IV ONE ×2 (05:32→11:06)
[2024-07-17 05:39] LABS: BASOPHILS # (AUTO) 0.08 K/uL (0.00-0.20); BASOPHILS % (AUTO) 0.8 % (0.0-5.0); EOSINOPHILS # (AUTO) 0.66 K/uL (0.00-0.70); EOSINOPHILS % (AUTO) 6.3 % (0.0-8.0); HEMATOCRIT 28.4 % (36-48); IMMATURE GRANULOCYTE ABSOLUTE 0.03 K/uL (0-1); LYMPHOCYTES # (AUTO) 1.8 K/uL (1.0-4.8); LYMPHOCYTES % (AUTO) 17.2 % (21.0-51.0); MEAN CORPUSCULAR HEMOGLOBIN 30.9 pg (27.0-33.0); MEAN CORPUSCULAR HGB CONC 34.2 g/dL (32.0-36.0); MEAN CORPUSCULAR VOLUME 90.4 fL (79-99); MONOCYTES # (AUTO) 0.8 K/uL (0.1-1.0); MONOCYTES % (AUTO) 7.2 % (3.0-13.0); NEUTROPHILS # (AUTO) 7.2 K/uL (1.8-7.7); NEUTROPHILS % (AUTO) 68.2 % (40.0-77.0); PLATELET COUNT (AUTO) 378 K/uL (130-400); RED BLOOD CELL COUNT(AUTO) 3.14 MIL/uL (4.00-5.50); RED CELL DISTRIBUTION WIDTH 13.8 % (11.0-15.5); WHITE BLOOD COUNT (AUTO) 10.5 K/uL (4.8-10.8)
--- NOTE | 2024-07-17 05:49 | NUR ---
SECOND ATTEMPT WAS MADE FOR CT PE EXAM, NEW IV SITE WAS PLACED ON LEFT FOREARM, INFILTRATED WHEN FLUSHED, RN WILL CONSULT WITH PHYSICIAN FOR AN ALTERNATIVE STUDY.
[2024-07-17] MEDS: VANCOMYCIN 500MG+NS 100ML 100 ML IV SCH (06:03)
[2024-07-17 08:00] VITALS: BP 162/79; PULSE 77; RESP 16; TEMP 97.7; O2SAT 97
[2024-07-17] MEDS: VERAPAMIL HCL 240 MG SRTAB PO SCH (09:00)
[2024-07-17] MEDS: (Escitalopram Oxalate 10 MG) PO SCH (09:00)
--- NOTE | 2024-07-17 09:57 | NUR ---
Nutritional Note: Chart, meds, and labs Reviewed. Pt family report of poor eating and pt with significant wt loss. Recommend: -6 small meals encourage PO intake. -Address low mg with supplements, if necessary. -Ensure w/ Meals -If PO intake continues <50% of meals take consider enteral nutrition due to pt hx of dementia. -ProStat BID (30 ml) JELLO Which will aid in wound healing. Balance protein calorie intake to promote wound healing. This provides 3.3 mg L-arginine, 15 gm protein and 100 kcal per 30 ml -Zinc Sulfate 220mg BID, Vit C 500mg BID, and MVI - Electrolyte replacements per protocol -Monitor feeding tolerance, %, wt, and labs -If No BM >3days consider bowel stimulant. -Schedule outpatient RD f/u for long-term nutrition care. - Please notify RD if additional nutrition concerns arise. SEE RD Nutritional Assessment for additional assessment information. Addendum: 07/17/24 at [address] Amended: Links added.
--- NOTE | 2024-07-17 10:45 | HMCIMG ---
CT angiogram chest CLINICAL INDICATION: r/o PE COMPARISON: None. CT Dose Index (CTDI): 113.50 mGy Dose Length Product (DLP): 1408.10 total mGy PROTOCOL: Contrast: 100 cc of Isovue-370, injected IV, no complications Examination is done at 2.5 millimeter volumetric acquisition after contrast administration. Photography is done at 5 millimeter thick intervals for the thorax. FINDINGS: Nonocclusive thrombosis of the right upper, interlobar and lower lobe pulmonary artery branches. No left-sided embolus seen. The airway is intact. The trachea and major bronchi are unremarkable. No pulmonary infiltrates or mass lesions are seen. No pleural effusions are identified. The exam of the bola and mediastinum is unremarkable. No evidence of hilar enlargement is seen. The aorta shows no aneurysmal dilatation or significant atheromatous calcification. There is no thoracic aortic dissection. No significant brachiocephalic vascular abnormalities are seen. The heart is unremarkable. It is not enlarged. No significant coronary arterial calcifications are seen. There is no pericardial effusion. The rib cage appears unremarkable. The soft tissues of the chest wall are unremarkable. The dorsal spine shows no significant abnormalities. Limited evaluation of the upper abdomen demonstrates no gross abnormalities. IMPRESSION: Right-sided pulmonary embolism as noted. This study was performed using dose reduction techniques to include automated exposure control and/or adjustment of the mA and/or kV according to patient size.
[2024-07-17 12:00] VITALS: BP 120/64; PULSE 68; RESP 14; TEMP 97.7
[2024-07-17] MEDS ORDERED: HEParin 25,000 UNITS/250ML D5W 250 ML IV SCH (12:00)
[2024-07-17] MEDS: ENOXAPARIN SODIUM 30 MG/0.3 ML SQ SCH (12:00)
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
[2024-07-17 13:34] LABS: INR 1.02 (0.85-1.15); PROTHROMBIN TIME 11.4 SEC (9.6-11.6)
[2024-07-17 13:35] LABS: PARTIAL THROMBOPLASTIN TIME 35.1 SEC (26.3-35.5)
[2024-07-17] MEDS: DiphenhydrAMINE HCL 50 MG/ML VIAL IV PRN (14:51)
[2024-07-17 16:00] VITALS: BP 166/67; PULSE 78; RESP 18; TEMP 98.4
[2024-07-17 20:00] VITALS: BP 128/64; PULSE 78; RESP 19; TEMP 99.5; O2SAT 93
[2024-07-17] MEDS: ENOXAPARIN SODIUM 60 MG/0.6 ML SQ SCH (20:48)
[2024-07-18] VITALS (8 sets, daily range): BP systolic 91–160; BP diastolic 53–81; PULSE 62–90; RESP 17–21; TEMP 97.3–99.1; O2SAT 98–99
[2024-07-18 08:11] LABS: HEMATOCRIT 28.1 % (36-48); MEAN CORPUSCULAR HEMOGLOBIN 30.9 pg (27.0-33.0); MEAN CORPUSCULAR HGB CONC 33.8 g/dL (32.0-36.0); MEAN CORPUSCULAR VOLUME 91.5 fL (79-99); RED BLOOD CELL COUNT(AUTO) 3.07 MIL/uL (4.00-5.50); RED CELL DISTRIBUTION WIDTH 14.2 % (11.0-15.5); WHITE BLOOD COUNT (AUTO) 8.6 K/uL (4.8-10.8)
[2024-07-18 08:37] LABS: INR 0.99 (0.85-1.15); PROTHROMBIN TIME 11.1 SEC (9.6-11.6)
[2024-07-18] MEDS: polyETHYLene GLYCol 3350 17 GM POWD.PACK PO PRN (09:38)
[2024-07-18] MEDS: GABApentin 100 MG CAPSULE PO PRN (09:47)
--- NOTE | 2024-07-18 16:51 | HMCSR ---
APPROVED REPORT EXAM: Two-dimensional and M-mode echocardiogram with Doppler and color Doppler. INDICATION ICD: Rule out Right heart strain in active PE 2D Dimensions RVDd3.8 cmLVED Vol(simp.)85.2 mL LVES Vol(simp.)40.7 mL LVEF(%, simp.)52 % LA ESV INDEX (4CH)26.20 mL/m2 Aortic Valve AoV VTI0.3 mAo Mean GR4.0 mmHgLVOT VTI0.16 m Mitral Valve MV E Vmax44.6 cm/sDECEL Spim524 ms MV A Vmax82.9 cm/sP 1/2 T69 ms E/A ratio0.5MVA (PHT)3.2 cm2 TDI E/E' Zxftwp90.9E/E' Lateral6.5 Medial E' Peak V4.10 cm/sLateral E' Peak V6.90 cm/s Left Ventricle Left ventricular cavity size is normal. Unable to assess LV wall thickness. LVEF is 50-55%. The left ventricular diastolic function is normal. Right Ventricle Right ventricle is not well visualized. Right ventricular systolic function could not be assessed. Atria The left atrium size is normal. Right atrium is not well visualized. Aortic Valve Aortic valve is not well visualized. No aortic regurgitation is present. There is no aortic valvular stenosis. Mitral Valve Mitral valve leaflets appear normal. There is no mitral valve regurgitation noted. There is no mitral valve stenosis. Tricuspid Valve Tricuspid valve is not well visualized. Pulmonic Valve Pulmonic valve is not well visualized. Great Vessels The aortic root is not well visualized but is probably normal size. Due to poor image quality, the IV C could not be assessed. Pericardium No pericardial effusion. Other Information Quality : Technically Limited Technically limited study due to pt uncooperative. Conclusion Right ventricle is not well visualized. Right ventricular systolic function could not be assessed.
[2024-07-18] MEDS: FAMOTIDINE 20MG VIAL IV SCH (18:06)
[2024-07-18] MEDS: APIXaban 5 MG TABLET PO SCH (20:22)
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
[2024-07-19] VITALS (9 sets, daily range): BP systolic 120–188; BP diastolic 63–86; PULSE 61–89; RESP 17–24; TEMP 97.5–98.3; O2SAT 98–99
[2024-07-19] MEDS: HALOPERIDOL INJ 5 MG/ML VIAL IV PRN (14:50)
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
--- NOTE | 2024-07-19 17:48 | NUR ---
medication not given patient asleep in bed resting
[2024-07-20] VITALS (7 sets, daily range): BP systolic 104–150; BP diastolic 43–60; PULSE 60–77; RESP 16–18; TEMP 97.6–98; O2SAT 100
--- NOTE | 2024-07-20 01:05 | NUR ---
nursing pm note patient alert, but not oriented. she is yelling. plan of care discussed with her and she is asking about her family. zyprexa given to her and she slept about 3 hours tonight. estrada and i turn her on her sides to prevent more skin breakdown. venelex applied to her buttocks. call light within reach, bed alarm on, 2 side rails up, door open. will continue to monitor patient.
[2024-07-20 07:36] LABS: HEMATOCRIT 30.5 % (36-48); MEAN CORPUSCULAR HEMOGLOBIN 30.9 pg (27.0-33.0); MEAN CORPUSCULAR HGB CONC 33.1 g/dL (32.0-36.0); MEAN CORPUSCULAR VOLUME 93.3 fL (79-99); RED BLOOD CELL COUNT(AUTO) 3.27 MIL/uL (4.00-5.50)
[2024-07-20 07:50] LABS: CREATININE 0.7 mg/dL (0.5-1.0); MAGNESIUM 1.6 mg/dL (1.80-2.40); POTASSIUM 3.6 mmol/L (3.5-5.1)
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
[2024-07-21] VITALS (7 sets, daily range): BP systolic 84–138; BP diastolic 42–68; PULSE 63–101; RESP 17–19; TEMP 92–98.5; O2SAT 99–100
[2024-07-21 04:42] LABS: HEMATOCRIT 26.5 % (36-48); MEAN CORPUSCULAR HEMOGLOBIN 31.2 pg (27.0-33.0); MEAN CORPUSCULAR HGB CONC 33.6 g/dL (32.0-36.0); RED BLOOD CELL COUNT(AUTO) 2.85 MIL/uL (4.00-5.50); RED CELL DISTRIBUTION WIDTH 14.1 % (11.0-15.5); WHITE BLOOD COUNT (AUTO) 10.2 K/uL (4.8-10.8)
[2024-07-21 04:58] LABS: CREATININE 0.7 mg/dL (0.5-1.0); POTASSIUM 3.3 mmol/L (3.5-5.1)
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
[2024-07-22] VITALS: BP 134/61; PULSE 68; RESP 18; TEMP 98.2
[2024-07-22 04:00] VITALS: BP 119/49; PULSE 50; RESP 18; TEMP 97.7
[2024-07-22 08:00] VITALS: BP 134/61; PULSE 65; RESP 19; TEMP 97.4; O2SAT 99
[2024-07-22 12:00] VITALS: BP 131/71; PULSE 70; RESP 17; TEMP 97.7
[2024-07-22 16:00] VITALS: BP 100/57; PULSE 71; RESP 17; TEMP 98.3
--- NOTE | 2024-07-22 16:02 | NUR ---
DC PLAN PATIENT ACCEPTED TO [facility]. LET NURSE AND MASTER ESTHETICIAN KNOW. EMS SET UP PASRR SENT. FAMILY SON NOTIFIED. Addendum: 07/22/24 at 1609 by SULEMA ZELAYA RN CM Amended: Links added.
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
== END 2024-07-22 16:29 | DRG 602 ==
LOC: EDH 13:43 → OBSVTOIN 16:22 → EDHIP 16:22 → 4BH 22:42
PROVIDERS: ADMIT Internal Medicine Critical Care Medicine; ATTEND Internal Medicine Critical Care Medicine
DX: L03.113 Cellulitis of right upper limb (principal); G93.41 Metabolic encephalopathy; I26.99 Other pulmonary embolism without acute cor pulmonale; N30.00 Acute cystitis without hematuria; R62.7 Adult failure to thrive; S63.502A Unspecified sprain of left wrist, initial encounter; N18.9 Chronic kidney disease, unspecified; E11.22 Type 2 diabetes mellitus with diabetic chronic kidney disease; D63.1 Anemia in chronic kidney disease; I12.9 Hypertensive chronic kidney disease with stage 1 through stage 4 chronic kidney disease, or unspecified chronic kidney disease; E86.0 Dehydration; L89.152 Pressure ulcer of sacral region, stage 2; R63.0 Anorexia; E87.6 Hypokalemia; E11.65 Type 2 diabetes mellitus with hyperglycemia; E78.00 Pure hypercholesterolemia, unspecified; F03.90 Unspecified dementia, unspecified severity, without behavioral disturbance, psychotic disturbance, mood disturbance, and anxiety; G89.29 Other chronic pain; I25.10 Atherosclerotic heart disease of native coronary artery without angina pectoris; W18.39XA Other fall on same level, initial encounter; M85.80 Other specified disorders of bone density and structure, unspecified site; Z68.20 Body mass index [BMI] 20.0-20.9, adult; Y93.89 Activity, other specified; Y92.89 Other specified places as the place of occurrence of the external cause; Y99.8 Other external cause status
CPT/HCPCS: 36415; 71270; 73100; 73130; 80048; 80053; 81001; 82550; 82948; 83036; 83605; 83735; 84132; 84443; 85025; 85027; 85378; 85610; 85730; 87040; 87086; 87635; 87804; 87880; 93306; 93880; 93970; 93971; 96374; 99285; G0378; J0692; J1200; J1630; J1650; J2060; J3370; J3475; J3486; J3490; Q0163; Q9967; 3370